=== PATIENT | male | born 1960 | race Caucasian/White ===

== ENCOUNTER → 2022-06-29 09:20 | Outpatient (REF) | payer MEDICARE, OTHER, SELFPAY ==
--- NOTE | 2022-06-29 09:35 | CA_ITS ---
Transthoracic Echocardiogram Patient (Last, First, Middle): Brenton Kilpatrick, Gender: Male Date of : 1960 Age: 61 Procedure Date: 06/29/2022 Procedure Type: Transthoracic Echocardiogram Location: [place] Height: 180.34 cm Weight: 124.74 kg BSA: 2.41 m2 Heart Rate: 99 bpm BP: 142 / 74 mmHg Client Customer Manager: SB Referring MD: Megha FOYP- Welder Helper: Daniel Gaviria MD Symptoms: SOB, LOWER EXT EDEMA, HTN, DYSPNEA, BLANCO Study Quality: Adequate w contrast ECG Rhythm: Sinus Conclusions: - 1. Low normal LV systolic function with impaired relaxation filling pattern 2. Normal cardiac valvular Dopplers 3. Normal RV systolic pressure 4. No gross pericardial effusion Findings Procedure Information Contrast agent, definity, is being given per protocol without apparent complications. Left Ventricle Normal left ventricular cavity size. There is normal left ventricular wall thickness. The left ventricular systolic function is low normal. The visually estimated ejection fraction is between 50-55%. Spectral Doppler is indicative of an impaired relaxation filling pattern. E/E prime ratio is between 8 and 15 consistent with indeterminate filling pressures. Right Ventricle Normal right ventricular cavity size and systolic function. Atria The left atrium is normal in size. Interatrial shunt cannot be excluded. The right atrium is normal in size. Aortic Valve The aortic valve was not well visualized. There is no aortic valve stenosis. There is no aortic valve regurgitation. Mitral Valve Normal mitral valve structure and function. There is no mitral valve regurgitation. There is no mitral valve stenosis. Pulmonic Valve The pulmonic valve was not well visualized. Tricuspid Valve Likely normal tricuspid valve structure and function. There is mild tricuspid valve regurgitation. The right ventricular systolic pressure is 28 mmHg. Normal right atrial pressure. There is no evidence of pulmonary hypertension. Great Vessels All visible segments of the aorta are normal in size. The pulmonary artery was not well visualized. Venous The inferior vena cava is normal in size and collapses greater than 50% with inspiration. Pericardium/Pleural There is no evidence of pericardial effusion. Prior Study Comparison No prior study available for comparison. Measurements 2D Linear Measurements IVSd: 1.11 0.6-0.9/0.6-1.0 cm LVIDd: 4.88 3.9-5.3/4.2-5.9 cm LVIDd Index: 2.02 2.4-3.2/2.2-3.1 cm/m2 LVIDs: 3.42 2.0-3.6 cm LVPWd: 0.83 0.7-1.1 cm LA Diam: 3.60 2.7-3.8/3.0-4.0 cm LAIDs Index: 1.49 1.5-2.3 cm/m2 LV Mass: 208.32 67-162/88-224 g LV Mass Index: 86.44 43-95/49-115 g/m2 LVOT Diam: 2.20 3.0+(-)1.3 cm 2D Systolic Function EF 4C: 59.30 >55% EF 2C: 44.70 >55% EF BiP: 52.70 >55% Mitral Valve MV Pk E: 0.51 MV PK A: 0.71 MV Decel Time: 243.00 E/A: 0.70 E'Lateral: 5.66 E'Medial: 3.70 E/E' Med: 13.90 E/E' Lat: 9.10 PHT: 71.00 MVA PHT: 3.10 Decel Collier: 2.11 Aortic Valve AoV Pk Jaspreet: 1.16 AoV Pk Grad: 5.00 ARDEN: 2.80 LVOT LVOT Pk Jaspreet: 0.87 LVOT Mn Jaspreet: 0.67 LVOT VTI: 0.17 LVOT Pk Grad: 3.00 LVOT Mn Grad: 2.00 LVOT Diam: 2.20 LVOT Area: 3.80 Diastolic Function MV Pk E: 0.51 MV Pk A: 0.71 E/A: 0.70 E'Medial: 3.70 E/E' Med: 13.90 E' Laterial: 5.66 E/E' Lat: 9.10 Right Ventricle TVS' Jaspreet: 12.10 Tricuspid Valve TR Pk Jaspreet: 2.51 TR Pk Grad: 25.00 RA Press: 3.00 RVSP: 28.00 Great Vessels Aorta Sinus of Valsalva: 3.50 2.0-3.5 cm Ao Asc: 3.50 2.1-3.4 cm Pulmonary Valve PV Pk Jaspreet: 1.14 Peak PV Grad: 5.00 Updated in Other Vendor System with Status of Final Daniel Gaviria MD electronically signed on 06/29/2022 3:46:16 PM with status of Final
== END ==
LOC: HO.CARD 09:20
PROVIDERS: PCP Registered Nurse; Visit Provider Registered Nurse
DX: R06.02 Shortness of breath (principal)
CPT/HCPCS: 93306; Q9957